=== PATIENT | female | born 1970 | race Asian ===

== ENCOUNTER → 2016-06-28 | Outpatient (CLI) | payer BC ==
--- NOTE | 2016-06-29 08:37 | RADRPT ---
PROCEDURE: XR bilateral knees. CLINICAL INDICATION: Knee pain TECHNIQUE: AP weightbearing, PA weightbearing, lateral weightbearing and sunrise views are availab le for review. COMPARISON: None available FINDINGS: Right knee: There is moderate osteoarthrosis involving the right medial tibial femoral compartment and patellofe moral compartment .This is associated with joint space narrowing, subchondral sclerosis and osteophy tosis. Left knee: There is moderate osteoarthrosis involving the left patellofemoral compartment and mild osteoarthro sis involving the lateral tibial femoral compartment. This is associated with joint space narrowing, subchondral sclerosis and osteophytosis. There is otherwise normal mineralization, architecture and alignment. No fractures are identified. No osseous lesions are identified. The soft tissues are unremarkable. IMPRESSION: Moderate osteoarthrosis involving the right medial tibial femoral compartment and patellofemoral com partment Moderate osteoarthrosis involving the left patellofemoral compartment and mild osteoarthrosis involv ing the lateral tibial femoral compartment. RPTAT: [facility] .Troy Vicente MD, MD Date Time Electronically viewed and signed by .Troy Vicente MD, on 06/29/2016 08:37 .B/
== END | disposition home or self-care (01) ==
LOC: HKI 10:07
PROVIDERS: ATTEND Orthopaedic Surgery
DX: M17.11 Unilateral primary osteoarthritis, right knee (principal)
CPT/HCPCS: 20610; 73564; G0463; J1030